=== PATIENT | female | born 1965 | race Two or more races ===

== ENCOUNTER 2020-01-02 19:35 | Emergency (ER) | payer BC ==
[~2020-01-02] VITALS: Ht 160 cm; Wt 109.3 kg
[~2020-01-02 19:35] MED LIST: ALPR0.5T5 PO; AMOX1TAB64 PO; AZAT50TA9 PO; BACL-19 PO; CA C1TAB60 PO; CALC500T51 PO; DEXAMETHASONE TP; DILT120C64 PO; DILT240C47 PO; ESTR1PAT PERC; IBUP-1223 PO; LEVO88TA2 PO; LOSA1TAB7 PO; MYCO500T PO; OMEP40CA42 PO; POTA20TA37 PO; PRED5TAB25 PO
[2020-01-02 19:36] VITALS: BP 143/69
--- NOTE | 2020-01-02 20:13 | NUR ---
xr at bedside given ice pack c/o tingling top of L foot unable to weight bear md was at bedside call yin in reach. as
--- NOTE | 2020-01-02 20:43 | NUR ---
XR WNL UP FOR RECHECK REPORT TO CAMILO FARLEY.
== END 2020-01-02 22:11 | disposition home or self-care (01) ==
LOC: ED 20:29
DX: S83.92XA Sprain of unspecified site of left knee, initial encounter (principal); S80.02XA Contusion of left knee, initial encounter; M79.671 Pain in right foot; M19.90 Unspecified osteoarthritis, unspecified site; W01.0XXA Fall on same level from slipping, tripping and stumbling without subsequent striking against object, initial encounter; Y93.89 Activity, other specified; Y92.009 Unspecified place in unspecified non-institutional (private) residence as the place of occurrence of the external cause; Y99.8 Other external cause status
CPT/HCPCS: 29505; 99284